=== PATIENT | female | born 1945 | race Caucasian/White ===

== ENCOUNTER → 2016-10-24 | Outpatient (CLI) | payer MEDICARE ==
--- NOTE | 2016-10-24 15:11 | REPMRS ---
Patient History The patient states she had a clinical breast exam in 10/18 Patient is postmenopausal. No known family history of cancer. Digital Woman Screen Mammo: October 24, 2016 - Exam #: [id number] Bilateral MLO and CC view(s) were taken. CV view(s) were taken of the right breast. Technologist: Marlyn Lee, Technologist Prior study comparison: February 23, 2015, digital woman screen mammo performed at [facility] to [facility]. November 05, 2008, digital bilateral screening mammo performed at [facility] to [facility]. FINDINGS: The breast tissue is almost entirely fat. There has been no change in the appearance of the mammogram from the prior studies. There is no interval development of dominant mass, architectural distortion, or clustered microcalcification typical of malignancy. ASSESSMENT: BI-RADS/ACR category 1 mammogram. Negative. Recommendation Routine screening mammogram of both breasts in 1 year (for women over age 40). This mammogram was interpreted with the aid of an FDA-approved computer-aided dectection system. Electronically Signed By: Alin Mason MD 10/24/16 1010
== END ==
LOC: M WHC 13:19
PROVIDERS: ATTEND Nurse Practitioner Family
DX: Z12.31 Encounter for screening mammogram for malignant neoplasm of breast (principal); E65 Localized adiposity; Z78.0 Asymptomatic menopausal state

== ENCOUNTER → 2018-07-02 | Outpatient (REF) | payer MEDICARE | LOC: M SFHCWAGY 13:54 | PROVIDERS: ATTEND Nurse Practitioner Family | DX: Z12.4 Encounter for screening for malignant neoplasm of cervix (principal) ==

== ENCOUNTER → 2018-07-02 | Outpatient (CLI) | payer MEDICARE ==
--- NOTE | 2018-07-02 14:38 | REPMRS ---
Patient History The patient states she had a clinical breast exam in 06/2018. Patient is postmenopausal. No known family history of cancer. No Hormone Replacement Therapy 3D TOMOSYNTHESIS WAS PERFORMED. Digital Woman Screen Mammo: July 02, 2018 - Exam #: [id number] Bilateral CC and MLO view(s) were taken. Technologist: Rachel Hallman, Technologist Prior study comparison: October 24, 2016, digital woman screen mammo performed at [facility] to [facility]. February 23, 2015, digital woman screen mammo performed at [facility] to [facility]. FINDINGS: There are scattered fibroglandular densities. There has been no change in the appearance of the mammogram from the prior studies. There is a mild amount of residual fibroglandular tissue which is fairly symmetric. There is no interval development of dominant mass, architectural distortion, or clustered microcalcification suggestive of malignancy. Assessment: BI-RADS/ACR category 1 mammogram. Negative Mammogram. Recommendation Routine screening mammogram in 1 year (for women over age 40). This mammogram was interpreted with the aid of an FDA-approved computer-aided dectection system. Electronically Signed By: Jhon Darnell MD 07/02/18 4206
== END ==
LOC: M WHC 13:28
PROVIDERS: ATTEND Nurse Practitioner Family
DX: Z12.31 Encounter for screening mammogram for malignant neoplasm of breast (principal); Z78.0 Asymptomatic menopausal state

== ENCOUNTER 2018-10-03 07:46 | Day surgery (SDC) | payer MEDICARE ==
[~2018-10-03] VITALS: Ht 152.4 cm; Wt 105.6 kg
[~2018-10-03 07:46] MED LIST: LANS30CA93 PO; LEVO88TA3 PO; LEVOTAB10 PO; LR 1,000 ML IV ONE; MIRA3350 PO; TYLE650T35 PO; VALS160T3 PO
[2018-10-03] MEDS ORDERED: fentaNYL 100 MCG/2 ML INJECTION (J3010) As Ordered ONE (08:00)
[2018-10-03] MEDS ORDERED: KETOROLAC 60 MG/2 ML VIAL (J1885) As Ordered ONE (08:00)
[2018-10-03] MEDS ORDERED: MIDAZOLAM INJ 2 MG/2 ML VIAL (J2250) As Ordered ONE (08:00)
[2018-10-03] MEDS ORDERED: dexameTHASONE 4 MG/ML 1ML VIAL (J1100) As Ordered ONE (08:00)
[2018-10-03] MEDS ORDERED: LIDOCAINE 2% INJ 100 MG/5 ML SDV (FOR ANES.) As Ordered ONE (08:00)
[2018-10-03] MEDS ORDERED: ONDANSETRON 4MG/2ML VIAL (J2405) As Ordered ONE (08:00)
[2018-10-03] MEDS ORDERED: PROPOFOL 200 MG/20 ML VIAL As Ordered ONE (08:00)
[2018-10-03 09:12] LABS: BLOOD UREA NITROGEN 15 MG/DL (7-18); CALCIUM LEVEL 8.8 MG/DL (8.8-10.2); CARBON DIOXIDE LEVEL 31 MEQ/L (21-32); CHLORIDE LEVEL 103 MEQ/L (98-107); CREATININE FOR GFR 0.83 MG/DL (0.55-1.30); GLOMERULAR FILTRATION RATE > 60.0 (>39); GLUCOSE, FASTING 98 MG/DL (70-100); SODIUM LEVEL 137 MEQ/L (136-145)
[2018-10-03 09:13] LABS: POTASSIUM SERUM 3.8 MEQ/L (3.5-5.1)
[2018-10-03 11:15] VITALS: BP 145/64
--- NOTE | 2018-10-03 16:09 | RO ---
DATE OF PROCEDURE: 10/03/2018 PREOPERATIVE DIAGNOSIS: Postmenopausal bleeding with abnormal pelvic ultrasound. POSTOPERATIVE DIAGNOSIS: Postmenopausal bleeding with abnormal pelvic ultrasound with endometrial polyps seen. PROCEDURE: Dilation and curettage (D and C), hysteroscopy, MyoSure resection of polyps in the endometrium. SURGEON: Dr. Mey Manzanares RECEIVING DOCK CHECKER: ANESTHESIA: LMA. DESCRIPTION OF PROCEDURE: Brief Description of procedure and findings: Linnette was brought to the operating room where sufficient LMA anesthesia was induced, and she was prepped, draped and positioned in the usual sterile fashion, the bladder emptied and speculum placed and the cervix grasped with a single-tooth tenaculum. The cervix was carefully dilated and the hysteroscope placed, and the endometrial cavity visualized. There were several quite small polyps noted along the patient's right side. She also has some annular scarring of the uterus consistent with previous dilation and curettage, and there were normal tubal ostia. There was normal contour otherwise of the endometrial cavity, but the lining had several polypoid growths, which are documented in the pictures, and these were all pretty small, and they did not appear hypervascular nor was there an obvious sort of frond-like appearance. There was no ulceration or other concerning appearance. These looked to be benign polyps, but, of course, we used the MyoSure REACH to resect them all in their entirety and to resect the endometrial lining. We were able to document with pictures that we had removed them entirely. We also went ahead and sampled the endocervical canal with the MyoSure and again, we were able to get a good 360 sampling. We did also do curettage after the MyoSure resection to confirm normal uterine cry throughout, and the procedure was then ended. Estimated blood loss for the procedure: Maybe 3 mL. Fluids replacement: Crystalloid. Complications: None. Condition and Disposition: Linnette tolerated the procedure well and was recovering in the recovery room in good condition.
== END 2018-10-03 12:10 | disposition home or self-care (01) ==
LOC: M SDC 07:46
PROVIDERS: ATTEND Obstetrics & Gynecology
DX: N85.01 Benign endometrial hyperplasia (principal); I10 Essential (primary) hypertension; E03.9 Hypothyroidism, unspecified; K21.9 Gastro-esophageal reflux disease without esophagitis; G47.30 Sleep apnea, unspecified; Z91.040 Latex allergy status; Z79.899 Other long term (current) drug therapy
CPT/HCPCS: 36415; 58558; 80048; 88304; J1100; J1885; J2250; J2405; J3010

== ENCOUNTER → 2020-04-15 | Outpatient (CLI) | payer MEDICARE ==
[~2020-04-15] MED LIST changes: +ACET650T61 PO; -LR 1,000 ML IV ONE; -TYLE650T35 PO
--- NOTE | 2020-04-15 15:52 | REPMRS ---
Patient History The patient states she had a clinical breast exam in 04/23 No known family history of cancer. No Hormone Replacement Therapy Digital Woman Screen Mammo: April 15, 2020 - Exam #: [id number] Bilateral MLO, CC, and XCCL view(s) were taken. Technologist: Marlyn Lee, Technologist Prior study comparison: July 02, 2018, bilateral digital woman screen mammo performed at [facility]. October 24, 2016, digital woman screen mammo performed at [facility]. February 23, 2015, digital woman screen mammo performed at [facility]. FINDINGS: The breast tissue is almost entirely fat. The Volpara volumetric breast density category is: A. There has been no change in the appearance of the mammogram from the prior studies. There is no interval development of dominant mass, architectural distortion, or grouped microcalcification typical of malignancy. 3-D tomosynthesis shows no additional findings. Assessment: BI-RADS/ACR category 1 mammogram. Negative Mammogram. Recommendation Routine screening mammogram of both breasts in 1 year (for women over age 40). This patient's Lifetime Breast Cancer RIsk is estimated at 4.0 %. This mammogram was interpreted with the aid of an FDA-approved computer-aided dectection system. Electronically Signed By: Alin Mason MD 04/15/20 [id number]
== END ==
LOC: M WHC 14:02
PROVIDERS: ATTEND Nurse Practitioner Family
DX: Z12.31 Encounter for screening mammogram for malignant neoplasm of breast (principal)